=== PATIENT | female | born 1995 | race Caucasian/White ===

== ENCOUNTER 2019-09-21 08:39 | Day surgery (SDC) | payer OTHER, SELFPAY ==
[~2019-09-21] VITALS: Ht 165.1 cm; Wt 72.6 kg
[~2019-09-21 08:39] MED LIST: CEFAZOLIN SOD 1 GM in D5W 50 ML IV ONE
[2019-09-21 09:39] LABS: HCG,QUAL RESULT NEGATIVE (NEGATIVE)
[2019-09-21] MEDS ORDERED: LR 1,000 ML IV.SOLN IV ONE (10:41)
[2019-09-21] MEDS ORDERED: DEXAMETHASONE SOD PHOSPHATE 4 MG/ML VIAL IVP ONE (10:41)
[2019-09-21] MEDS ORDERED: SEVOFLURANE 15 MIN GAS INH ONE (10:41)
[2019-09-21] MEDS ORDERED: ONDANSETRON HCL 4 MG/2 ML VIAL IVP ONE (10:41)
[2019-09-21] MEDS ORDERED: BUPIVACAINE /EPINEPHRINE/PF 0.25% 30 ML VIAL INJ ONE (10:41)
[2019-09-21] MEDS ORDERED: fentaNYL CITRATE/PF 100 MCG/2 ML AMP IVP ONE (10:41)
[2019-09-21] MEDS ORDERED: PROPOFOL 200MG/ 20ML VIAL (DIPRIVAN) IV ONE (10:41)
[2019-09-21] MEDS ORDERED: LIDOCAINE 1% 10 MG/ML, 20 ML MDV INJ ONE (10:41)
[2019-09-21] MEDS ORDERED: NS IRRIG SOLN 1000 ML IR ONE (10:41)
[2019-09-21] MEDS ORDERED: MIDAZOLAM HCL 5 MG/5 ML VIAL IVP ONE (10:41)
[2019-09-21] MEDS ORDERED: D5/0.45 NS 1,000 ML IV SCH (11:28)
[2019-09-21] MEDS ORDERED: ONDANSETRON HCL 4 MG/2 ML VIAL IVP PRN (11:30)
[2019-09-21] MEDS ORDERED: METOCLOPRAMIDE HCL 10 MG/2 ML VIAL IVP PRN (11:30)
[2019-09-21] MEDS ORDERED: MEPERIDINE HCL/PF 25 MG/ML DISP.SYRIN IVP PRN (11:30)
[2019-09-21] MEDS ORDERED: MIDAZOLAM HCL 2 MG/2 ML VIAL (VERSED) IVP PRN (11:30)
[2019-09-21] MEDS ORDERED: HYDROcodone/ACETAMIN 5-325 MG TAB (NORCO/ VICODIN) PO PRN ×2 (11:30)
[2019-09-21] MEDS ORDERED: LR 1,000 ML IV SCH (11:30)
[2019-09-21] MEDS ORDERED: HYDROmorphone 1 MG INJ. 1 MG/ML AMPUL IVP PRN ×3 (11:30)
[2019-09-21 12:25] VITALS: BP_SYST 110
== END 2019-09-21 14:45 | disposition home or self-care (01) ==
LOC: SDS 08:39 → SMU 08:41 → SDS 14:45 → EDSTATUS 16:24
PROVIDERS: ATTEND Colon & Rectal Surgery
DX: K60.3 Anal fistula (principal); Z11.59 Encounter for screening for other viral diseases
CPT/HCPCS: 46275; 84703; J0690; J1100; J2001; J2250; J2405; J2704; J3010; J3490; J7060; J7120; U0003